=== PATIENT | female | born 1990 | race Caucasian/White ===

== ENCOUNTER → 2017-02-05 | Outpatient (REF) ==
[~2017-02-05] MED LIST: DORYX100 PO; FLAGYL 250250 MG/TAB PO; IBU600 MG PO; IRON325 MG PO; MOTRIN 600600 MG/TAB PO; PERCOCET 325 MG1 TA2 PO; PRENATAL 191 TAB PO; PRENATAL1 TA7; PROMETHAZINE12.5 M5; PROZAC 10MG10 MG PO; ZOFRAN 4MG T4 MG/TAB PO
== END ==
LOC: ZLAB.WCH 18:03
DX: Z01.89 Encounter for other specified special examinations (principal)

== ENCOUNTER 2017-03-21 14:53 | Emergency (ER) | payer MEDICAID ==
[~2017-03-21] VITALS: Ht 149.9 cm; Wt 42.3 kg
[2017-03-21] MEDS ORDERED: NORCO 325 MG-51 TAB PO (16:33)
[2017-03-21 16:46] VITALS: BP 126/66; PULSE 68; TEMP 98.4
== END 2017-03-21 16:48 | disposition home or self-care (01) ==
LOC: COL.ER 14:53
DX: O03.9 Complete or unspecified spontaneous abortion without complication (principal); O99.321 Drug use complicating pregnancy, first trimester; F12.90 Cannabis use, unspecified, uncomplicated; F17.210 Nicotine dependence, cigarettes, uncomplicated; O99.331 Smoking (tobacco) complicating pregnancy, first trimester; Z3A.13 13 weeks gestation of pregnancy; Z87.442 Personal history of urinary calculi; Z98.890 Other specified postprocedural states

== ENCOUNTER → 2017-03-22 | Outpatient (REF) ==
[~2017-03-22] MED LIST changes: +NORCO 325 MG-51 TAB PO
== END ==
LOC: ZLAB.WCH 08:33
DX: Z01.89 Encounter for other specified special examinations (principal)

== ENCOUNTER → 2017-06-03 | Outpatient (REF) | LOC: ZLAB.WCH 08:28 | DX: Z01.89 Encounter for other specified special examinations (principal) ==

== ENCOUNTER → 2017-06-05 | Outpatient (REF) | LOC: ZLAB.WCH 11:44 | DX: Z01.89 Encounter for other specified special examinations (principal) ==